=== PATIENT | male | born 1960 | race Caucasian/White ===

== ENCOUNTER 2020-08-25 19:15 | Emergency (ER) | payer OTHER ==
[~2020-08-25] VITALS: Ht 195.6 cm; Wt 167.8 kg
[2020-08-25 19:22] VITALS: Ht 195.6 cm; Wt 167.8 kg
[2020-08-25 20:59] VITALS: BP 127/80
== END 2020-08-25 20:50 | disposition home or self-care (01) ==
LOC: ED 19:15
DX: I83.891 Varicose veins of right lower extremity with other complications (principal); I10 Essential (primary) hypertension; E11.9 Type 2 diabetes mellitus without complications; E78.00 Pure hypercholesterolemia, unspecified; Z98.890 Other specified postprocedural states
CPT/HCPCS: J2001